=== PATIENT | male | born 1975 ===

== ENCOUNTER 2017-03-27 09:14 | Emergency (ER) | payer OTHER ==
[2017-03-27 09:14] VITALS: BMI 32.5
[2017-03-27 09:43] VITALS: BP 147/90; PULSE 60; RESP 18; TEMP 98.3; O2SAT 100
--- NOTE | 2017-03-27 11:48 | RAD ---
PROCEDURE: Left Knee Radiographs. HISTORY: Pain. COMPARISON: None. FINDINGS: BONES: No acute fracture. Calcific densities near the insertion of the patellar tendon JOINTS: Mild medial tibial femoral compartment narrowing. JOINT EFFUSION: Small joint effusion. OTHER FINDINGS: None. IMPRESSION: Small suprapatellar joint effusion without demonstrated acute fracture or dislocation.
--- NOTE | 2017-03-27 12:21 | ED PDOC ---
Lower Extremity Pain/Injury Time Seen by Provider: 03/27/17 09:35 Chief Complaint (Nursing): Lower Extremity Problem/Injury Chief Complaint (Provider): Lower extremity problem/injury History Per: Patient History/Exam Limitations: no limitations Onset/Duration Of Symptoms: Days (x2 weeks ) Current Symptoms Are (Timing): Still Present Additional Complaint(s): Padilla Javier is a 41 year old male, with no significant past medical history, who presents to the emergency department complaining of left knee pain with swelling s/p fall x2 weeks ago. Patient reports he fell while playing soccer. The pain is localized to the medial aspect of the left knee. He is able to ambulate but with pain. He denies any other medical complaints. PMD: None provided. - Knee Description Of Injury: Fell Past Medical History Reviewed: Historical Data, Nursing Documentation, Vital Signs Vital Signs: Last Vital Signs Temp 98.3 F 03/27/17 09:39 Pulse 60 03/27/17 09:39 Resp 18 03/27/17 09:39 BP 147/90 03/27/17 09:39 Pulse Ox 100 03/27/17 09:39 - Medical History PMH: No Chronic Diseases - Surgical History Surgical History: No Surg Hx - Family History Family History: States: Unknown Family Hx - Social History Current smoker - smoking cessation education provided: No Alcohol: Social Drugs: Denies - Home Medications Home Medications: Ambulatory Orders Medication Instructions Recorded No Known Home Med 03/27/17 - Allergies Allergies/Adverse Reactions: Allergies Allergy/AdvReac Type Severity Reaction Status Date / Time No Known Allergies Allergy Verified 03/27/17 09:43 Review of Systems ROS Statement: Except As Marked, All Systems Reviewed And Found Negative Musculoskeletal: Positive for: Leg Pain (left knee pain w/ swelling) Physical Exam - Reviewed Nursing Documentation Reviewed: Yes Vital Signs Reviewed: Yes - Physical Exam Appears: Positive for: Well, Non-toxic, No Acute Distress Head Exam: Positive for: ATRAUMATIC, NORMAL INSPECTION, NORMOCEPHALIC Skin: Positive for: Normal Color, Warm, Dry Eye Exam: Positive for: Normal appearance Neck: Positive for: Painless ROM Extremity: Positive for: Normal ROM (left knee full ROM), Swelling (medial aspect of left knee slightly swollen. ). Negative for: Pedal Edema, Deformity ( no step-off), Other (no hematoma) Neurologic/Psych: Positive for: Alert, Oriented. Negative for: Motor/Sensory Deficits - ECG O2 Sat by Pulse Oximetry: 100 (RA) Pulse Ox Interpretation: Normal Medical Decision Making Medical Decision Making: Initial Impression: Left knee injury Initial Plan: --Knee 3 views Lt [RAD] --reevaluation 11:46 Knee X-Ray FINDINGS: BONES: No acute fracture. Calcific densities near the insertion of the patellar tendon JOINTS: Mild medial tibial femoral compartment narrowing. JOINT EFFUSION: Small joint effusion. OTHER FINDINGS: None. IMPRESSION: Small suprapatellar joint effusion without demonstrated acute fracture or dislocation. 13:10 Upon provider evaluation patient is medically stable, and requires no further treatment in the ED at this time. Patient will be discharged home. Counseling was provided and all questions were answered regarding diagnosis and need for follow up with outpatient orthopedist. There is agreement to discharge plan. Return if symptoms persist or worsen. Scribe Attestation: Documented by Jeyson Fuller, acting as a scribe for Gayla Martinez MD Provider Scribe Attestation: All medical record entries made by the Scribe were at my direction and personally dictated by me. I have reviewed the chart and agree that the record accurately reflects my personal performance of the history, physical exam, medical decision making, and the department course for this patient. I have also personally directed, reviewed, and agree with the discharge instructions and disposition. Disposition - Clinical Impression Clinical Impression: Knee pain - Patient ED Disposition Is Patient to be Admitted: No Counseled Patient/Family Regarding: Studies Performed, Diagnosis, Need For Followup - Disposition Referrals: [facility] [Outside] Ovi Leung MD [Medical Doctor] - Disposition: Routine/Home Disposition Time: 13:10 Condition: IMPROVED Additional Instructions: follow up with orthopedic doctor for outpatient MRI. take motrin for pain. return to the ED with any worsening or concerning symptoms Instructions: Knee Pain (ED) Forms: [facility] (C[place])
== END 2017-03-27 13:19 | disposition home or self-care (01) ==
LOC: H.ER 09:14
DX: M25.562 Pain in left knee (principal)